=== PATIENT | female | born 1990 | race Caucasian/White ===

== ENCOUNTER 2025-03-26 12:24 | Emergency (ER) | payer OTHER ==
[~2025-03-26] VITALS: Ht 157.5 cm; Wt 39.0 kg
[2025-03-26 12:27] VITALS: TEMP 97.9
[2025-03-26 12:50] LABS: PLATELET COUNT (AUTO) 333 K/uL (150-450); RED BLOOD CELL COUNT(AUTO) 4.15 MIL/uL (4.0-5.2); RED CELL DISTRIBUTION WIDTH 15.5 % (11.5-15.0); WHITE BLOOD COUNT (AUTO) 7.6 K/uL (4.3-11.0)
[2025-03-26] MEDS ORDERED: LORAZEPAM INJ 2 MG/ML VIAL ONE (13:01)
[2025-03-26] MEDS: LORAZEPAM INJ 2 MG/ML VIAL IV ONE (13:05)
[2025-03-26 13:11] LABS: ALCOHOL, BLOOD < 3 mg/dL (0-10); ASPARTATE AMINOTRANSFERASE 17 U/L (15-37); CALCIUM, SERUM 8.5 mg/dL (8.5-10.1); CREATININE 0.6 mg/dL (0.6-1.3); SODIUM SERUM 136 mmol/L (136-145); TOTAL PROTEIN, SERUM 6.9 g/dL (6.4-8.2); UREA NITROGEN, BLOOD 18 mg/dL (7-18)
[2025-03-26 13:55] LABS: APPEARANCE,URINE CLEAR (CLEAR); BLOOD, URINE Trace-intact Ery/uL (NEGATIVE); LEUKOCYTE ESTERASE ,URINE Negative (NEGATIVE); NITRITE, URINE NEGATIVE (NEGATIVE); UGLUCOSE Negative (NEGATIVE)
[2025-03-26 14:13] LABS: ADD URINE CULTURE NO; SQUAMOUS EPITHELIAL CELL,UR Few /HPF (None Seen)
[2025-03-26 14:14] LABS: AMPHETAMINE, URINE NEGATIVE (NEGATIVE); BARBITURATE, URINE NEGATIVE (NEGATIVE); CANNABINOID, URINE NEGATIVE (NEGATIVE); COCCAINE, URINE NEGATIVE (NEGATIVE); OPIATE, URINE NEGATIVE (NEGATIVE)
[2025-03-26 14:16] LABS: BENZODIAZEPINE, URINE POSITIVE (NEGATIVE)
[2025-03-26 15:40] VITALS: BP 98/66; O2SAT 97
== END 2025-03-26 15:30 | disposition home or self-care (01) ==
LOC: ER 12:25
DX: F13.20 Sedative, hypnotic or anxiolytic dependence, uncomplicated (principal); F41.9 Anxiety disorder, unspecified; F14.10 Cocaine abuse, uncomplicated; R32 Unspecified urinary incontinence
CPT/HCPCS: 99284; 96374; 93005; 85025; 80048; 80076; 81001; 36415; 80143; 80320; 80307; J2060; G0480